=== PATIENT | male | born 1990 | race American Indian/Alaskan Native ===

== ENCOUNTER 2017-05-27 09:26 | Emergency (ER) | payer BC ==
[~2017-05-27] VITALS: Ht 172.7 cm; Wt 75.8 kg
[2017-05-27] MEDS ORDERED: PREDNISONE20 MG PO (12:18)
[2017-05-27] MEDS ORDERED: AZITHROMYCIN250 MG PO (12:18)
[2017-05-27 12:23] LABS: EOSINOPHIL (%) 0.3 % (0-5); HEMATOCRIT 45.2 % (38.0-50.0); IMMATURE GRANULOCYTE (%) 0.3 % (0.0-0.7); LYMPHOCYTE COUNT 1.7 K/uL (1.0-2.8); MCH 26.9 PG (29.0-34.0); MCV 81.6 FL (86-99); MEAN PLAT.VOLUME 10.3 uM^3 (9.0-12.4); MONOCYTE (%) 2.7 % (3-12); MONOCYTE COUNT 0.3 K/uL (0-0.8); NEUTROPHIL (%) 79.2 % (45-76); PLATELET COUNT 270 K/uL (156-360); RBC DIS.WIDTH-CV 13.1 % (11.8-14.6); RBC DIS.WIDTH-SD 38.4 % (39-53); RED BLOOD COUNT 5.54 M/uL (4.00-5.50); WHITE BLOOD COUNT 10.1 K/uL (4.1-10.2)
[2017-05-27 12:32] LABS: CHLORIDE 106 mEq/L (99-109); POTASSIUM 3.9 mEq/L (3.7-5.4); SODIUM 143 mEq/L (136-147)
[2017-05-27 12:33] LABS: GLUCOSE 108 mg/dL (70-99)
[2017-05-27 12:35] LABS: ANION GAP 14 MEQ/L (2-14)
[2017-05-27 12:38] LABS: UREA NITROGEN (BUN) 17 mg/dL (9-23)
[2017-05-27 12:39] LABS: GFR ESTIMATE (CALCULATED) > 59 mL/min/
[2017-05-27 13:11] LABS: D-DIMER ELISA < 150.00 ng/mLDDU (<230)
[2017-05-27] MEDS ORDERED: TYLENOL WITH C1 EACH PO (13:44)
[2017-05-27 14:10] VITALS: BP 132/86
== END 2017-05-27 14:12 | disposition home or self-care (01) ==
LOC: EME 09:26
PROVIDERS: Emergency Medicine
DX: J20.9 Acute bronchitis, unspecified (principal); R07.89 Other chest pain
CPT/HCPCS: 71020; 80048; 85025; 85379; 93005; 94640; 99281; 99285